=== PATIENT | male | born 2000 | race Caucasian/White ===

== ENCOUNTER 2022-04-28 01:21 | Emergency (ER) | payer BC, MEDICAID, OTHER ==
[2022-04-28] MEDS: MVI, Adult with Vitamin K 10 ML, Folic Acid 1 MG, Thiamine 100 MG in Lactated Ringers 1... IV ONE ×4 (01:54)
[2022-04-28] MEDS: Sodium Chloride 0.9% 10 ML Syringe FLUSH PRN (01:55)
[2022-04-28 02:18] LABS: ANION GAP 12.4 mEq/L (7-13)
== END 2022-04-28 10:48 | disposition home or self-care (01) ==
LOC: DL.ED 01:21
DX: F10.920 Alcohol use, unspecified with intoxication, uncomplicated (principal); Y90.8 Blood alcohol level of 240 mg/100 ml or more
CPT/HCPCS: 36415; 80053; 80143; 80179; 80307; 85025; 96365; 99284; J3411; J3490; J7120